=== PATIENT | male | born 1960 | race Caucasian/White ===

== ENCOUNTER 2017-01-22 19:45 | Day surgery (SDC) | payer OTHER ==
[~2017-01-22 19:45] MED LIST: ADVIL200 M1 PO; ADVIL200 M3 PO; ALLOPURINOL100 M1 PO; ASPIRIN81 M1 PO; COLCHICINE0.6 MG PO; CPAP; FLEXERIL10 MG PO; INDOMETHACIN50 M1 PO; LISINOPRIL10 MG PO; NO HOME MEDS; NORCO 5/325 TAB1 TAB PO; NUPERCAINAL30 GM RC; TUMS200 MG PO; ZYLOPRIM300 MG PO
== END 2017-01-22 23:47 ==
LOC: EDMED 19:45 → ENDOS 22:10
PROC: 0DJ08ZZ Inspection of Upper Intestinal Tract, Via Natural or Artificial Opening Endoscopic (ICD-10-PCS; principal; 2017-01-22)
DX: K44.9 Diaphragmatic hernia without obstruction or gangrene (principal); K22.2 Esophageal obstruction; K22.10 Ulcer of esophagus without bleeding; Z90.49 Acquired absence of other specified parts of digestive tract; Z98.890 Other specified postprocedural states
CPT/HCPCS: G0500; J2250; J3010